=== PATIENT | male | born 1980 | race Caucasian/White ===

== ENCOUNTER 2019-03-11 13:02 | Emergency (ER) | payer OTHER ==
[~2019-03-11] VITALS: Ht 190.5 cm; Wt 104.3 kg
[2019-03-11 13:14] VITALS: BP_SYST 142
--- NOTE | 2019-03-11 13:14 | NUR ---
JORDAN TIJERINA examining patient.
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
--- NOTE | 2019-03-11 13:20 | NUR ---
Patient to ER bed 7 to gown for evaluation. Side rails up. Report given to Xochitl BETANCUR.
[2019-03-11] MEDS ORDERED: DIPH-TET-PERTUS Vaccine 0.5 ML VIAL (ADACEL) I.M. ONE (13:30)
[2019-03-11] MEDS ORDERED: KETOROLAC TROMETHAMINE 60 MG/2 ML VIAL IM ONE (13:30)
--- NOTE | 2019-03-11 13:40 | NUR ---
PATIENT GETTING X RAY IN BED.
[2019-03-11] MEDS ORDERED: BACITRACIN 1 GM OINT TP ONE (14:15)
[2019-03-11] MEDS ORDERED: HYDROcodone/ACETAMIN 7.5-325 MG TAB PO ONE (14:15)
--- NOTE | 2019-03-11 14:22 | NUR ---
PATIENT'S ABRASIONS CLEANSED WITH NS AND PATTED DRY AND BACITRACIN APPLIED. PATIENT TOLERATED WELL.
--- NOTE | 2019-03-11 14:30 | NUR ---
Patient given written and verbal discharge instructions and verbalizes understanding. ER MD discussed with patient the results and treatment provided. Patient in stable condition. ID arm band removed. Rx of BACITRACIN, MOTRIN, AND TRAMADOL given. Patient educated on pain management and to follow up with PMD. Pain Scale 4/10 TOLERABLE AND SENT WITH PAIN MEDS. Opportunity for questions provided and answered. Medication side effect fact sheet provided.
[2019-03-11 14:31] VITALS: BP_SYST 142
== END 2019-03-11 14:30 | disposition home or self-care (01) ==
LOC: SED 13:02
DX: S62.323A Displaced fracture of shaft of third metacarpal bone, left hand, initial encounter for closed fracture (principal); S20.411A Abrasion of right back wall of thorax, initial encounter; S30.811A Abrasion of abdominal wall, initial encounter; S80.812A Abrasion, left lower leg, initial encounter; R03.0 Elevated blood-pressure reading, without diagnosis of hypertension; V22.4XXA Motorcycle driver injured in collision with two- or three-wheeled motor vehicle in traffic accident, initial encounter; Y93.89 Activity, other specified; Y92.410 Unspecified street and highway as the place of occurrence of the external cause; Y99.8 Other external cause status
CPT/HCPCS: 29125; 73130; 90471; 90715; 96372; 99283; J1885